=== PATIENT | male | born 1960 | race African-American/Black ===

== ENCOUNTER 2021-11-15 19:13 | Observation (INO) | payer MEDICARE, SELFPAY ==
[2021-11-15] MEDS ORDERED: Famotidine/PF 20 mg/2ml Vial ONE (20:05)
[2021-11-15] MEDS ORDERED: Aspirin Chewable 81 MG TAB ONE (20:05)
[2021-11-15] MEDS ORDERED: Morphine 4 MG/ML VIAL ONE (20:05)
[2021-11-15 20:27] LABS: PTT 24.8 sec (22.0-33.0); Prothrombin Time 10.9 sec (9.5-12.1)
[2021-11-15 20:29] LABS: ALT (SGPT) 22 U/L (8-55); AST (SGOT) 19 U/L (5-34); Albumin 4.7 g/dL (3.4-4.8); Alkaline Phosphatase 152 U/L (40-110); Anion Gap 17 mmol/L (10-20); BUN (Urea Nitrogen) 11 mg/dL (8.4-25.7); Bilirubin, Total 0.5 mg/dL (0.2-1.2); Calc. Creatinine Clearance 0 mL/min (70-130); Calcium 9.3 mg/dL (7.8-10.44); Carbon Dioxide 24 mmol/L (23-31); Chloride 107 mmol/L (98-107); Globulin 3.2 g/dL (2.4-3.5); Glucose 117 mg/dL (80-115); Potassium 4.3 mmol/L (3.5-5.1); Protein, Total 7.9 g/dL (5.8-8.1); Sodium 144 mmol/L (136-145)
[2021-11-15] MEDS ORDERED: Acetaminophen 325 MG TAB PO PRN (21:33)
[2021-11-15] MEDS ORDERED: Nitroglycerin 0.4 MG TAB (25 Tab Bottle) SL PRN (21:33)
[2021-11-15] MEDS ORDERED: Ondansetron ODT 4 MG TAB PO PRN (21:33)
[2021-11-15] MEDS ORDERED: HYDROcodone/Acetaminophen 5/325 mg Tablet PO PRN (21:33)
[2021-11-15] MEDS ORDERED: Ondansetron PF 4 MG/2 ML Vial IVP PRN (21:33)
[2021-11-15 23:14] LABS: Troponin I Less than 0.010 ng/mL (< 0.028)
[2021-11-15 23:26] VITALS: BMI 27.5
[2021-11-15] MEDS: Sodium Chloride 0.9% 1,000 ML IV SCH (23:46)
[2021-11-16 01:12] LABS: Troponin I 0.012 ng/mL (< 0.028)
[2021-11-16 04:42] LABS: #Monocytes 0.7 10x3/uL (0.0-1.1); #Neutrophils 5.4 10x3/uL (1.5-8.4); %Basophils 0.4 % (0.0-2.0); %Eosinophils 0.3 % (0.0-6.0); %Lymphocytes 17.5 % (18.0-47.0); %Monocytes 9.2 % (0.0-10.0); %Neutrophils 72.3 % (40.0-75.0); Hemoglobin 12.6 g/dL (13.5-17.5); Mean Corpuscular HGB CONC 30.1 g/dL (32.0-36.0); Mean Corpuscular Hemoglobin 25.4 pg (27.0-33.0); Mean Corpuscular Volume 84.3 fl (81.2-95.1); Mean Platelet Volume 10.8 fl (7.4-10.4); Platelet Count 228 10x3/uL (150-450); RBC Distribution Width 16.2 % (11.5-14.5); Red Blood Cell (RBC) Count 4.97 10x6/uL (4.32-5.72); White Blood Cell (WBC) Count 7.4 10x3/uL (3.5-10.5)
[2021-11-16 05:00] LABS: Anion Gap 16 mmol/L (10-20); BUN (Urea Nitrogen) 13 mg/dL (8.4-25.7); Calc. Creatinine Clearance 106 mL/min (70-130); Calcium 8.7 mg/dL (7.8-10.44); Carbon Dioxide 23 mmol/L (23-31); Cardiac Risk 4.4 (Less than 4.5); Chloride 109 mmol/L (98-107); Cholesterol 192 mg/dl (< 200 Desired); Glucose 140 mg/dL (80-115); HDL Cholesterol 44 mg/dL (>60 Neg Risk); LDL Cholesterol, Calculated 124 mg/dL; Sodium 144 mmol/L (136-145); Triglycerides 120 mg/dL (Less than 150)
[2021-11-16] MEDS: Sodium Chloride 0.9% 1,000 ML IV SCH (08:58)
[2021-11-16] MEDS ORDERED: Docusate 100 MG CAP PO SCH (09:00)
[2021-11-16] MEDS ORDERED: Rosuvastatin 10 MG TAB PO SCH (09:00)
[2021-11-16] MEDS ORDERED: Carvedilol 3.125 MG TAB PO SCH (09:00)
[2021-11-16] MEDS ORDERED: Famotidine 20 MG TAB PO SCH (09:00)
[2021-11-16] MEDS ORDERED: Clopidogrel Bisulfate 75 MG TAB PO SCH (09:00)
[2021-11-16] MEDS ORDERED: Enoxaparin Sodium 40 MG/0.4 ML SYRINGE SC SCH (09:00)
[2021-11-16] MEDS ORDERED: Aspirin 325 MG TAB PO SCH (09:00)
[2021-11-16] MEDS ORDERED: Lisinopril 5 MG TAB PO SCH (09:00)
[2021-11-16] MEDS ORDERED: traMADol HCl 50 MG TAB PO SCH (09:00)
[2021-11-16 17:20] VITALS: BP 137/63; TEMP 97.4
[2021-11-16 18:30] LABS: SARS-CoV-2 PCR by NAA DETECTED (NotDetected)
== END 2021-11-16 20:45 | disposition home or self-care (01) ==
LOC: CSHERS 19:13 → CSHTELE 22:35
PROVIDERS: ADMIT Internal Medicine; ATTEND Physician Assistant
DX: R11.2 Nausea with vomiting, unspecified (principal); U07.1 COVID-19; I25.10 Atherosclerotic heart disease of native coronary artery without angina pectoris; I10 Essential (primary) hypertension; Z95.1 Presence of aortocoronary bypass graft; Z95.5 Presence of coronary angioplasty implant and graft; Z79.899 Other long term (current) drug therapy; Z79.82 Long term (current) use of aspirin; R77.8 Other specified abnormalities of plasma proteins; F12.90 Cannabis use, unspecified, uncomplicated
CPT/HCPCS: 80048; 80053; 80061; 82962 ×2; 84484 ×2; 85025; 85610; 85730; 93005; 93306; 96372; 96374; 96375; 99285; G0378 ×3; U0003; U0005; 36415; 36416; J1650; J2270; J7050; S0028